=== PATIENT | male | born 1980 | race Caucasian/White ===

== ENCOUNTER 2017-02-24 07:05 | Emergency (ER) | payer MEDICAID ==
[~2017-02-24] VITALS: Ht 170.2 cm; Wt 62.5 kg
[2017-02-24 07:10] VITALS: BP 147/92
[2017-02-24] MEDS ORDERED: ARIP2TAB2 PO (07:23)
== END 2017-02-24 08:43 | disposition home or self-care (01) ==
LOC: ED 07:55
DX: F20.9 Schizophrenia, unspecified (principal)
CPT/HCPCS: 99284

== ENCOUNTER 2017-02-26 15:45 | Emergency (ER) | payer MEDICAID ==
[~2017-02-26] VITALS: Ht 170.2 cm; Wt 62.6 kg
[~2017-02-26 15:45] MED LIST: ARIP2TAB2 PO
[2017-02-26 15:46] VITALS: BP 149/79
[2017-02-26] MEDS ORDERED: LORazepam 1MG TABLET ONE (16:20)
[2017-02-26] MEDS ORDERED: ARIPIPRAZOLE 5 MG TABLET PO ONE (16:30)
[2017-02-26] MEDS ORDERED: LORazepam 1MG TABLET PO ONE (16:30)
== END 2017-02-26 17:19 | disposition home or self-care (01) ==
LOC: ED 16:16
DX: F20.9 Schizophrenia, unspecified (principal)
CPT/HCPCS: 82962; 99284